=== PATIENT | male | born 1945 | race African-American/Black ===

== ENCOUNTER 2021-04-30 11:49 | Outpatient (CLI) | payer MEDICARE ==
[2021-04-30 13:02] LABS: Hemoglobin 13.7 g/dL (13.5-17.5); Mean Corpuscular HGB CONC 34.4 g/dL (32.0-36.0); Mean Corpuscular Hemoglobin 29.3 pg (27.0-33.0); Platelet Count 174 10x3/uL (150-450); RBC Distribution Width 16.3 % (11.5-14.5); Red Blood Cell (RBC) Count 4.68 10x6/uL (4.32-5.72); White Blood Cell (WBC) Count 7.5 10x3/uL (3.5-10.5)
[2021-04-30 13:10] LABS: Anion Gap 12 mmol/L (10-20); BUN (Urea Nitrogen) 22 mg/dL (8.4-25.7); Calc. Creatinine Clearance 0 mL/min (70-130); Calcium 9.6 mg/dL (7.8-10.44); Carbon Dioxide 24 mmol/L (23-31); Chloride 107 mmol/L (98-107); Glucose 112 mg/dL (83-110); Potassium 5.4 mmol/L (3.5-5.1); Sodium 138 mmol/L (136-145)
[2021-05-01 00:24] LABS: SARS-CoV-2 PCR by NAA Not Detected (NotDetected)
== END 2021-04-30 11:50 | disposition home or self-care (01) ==
LOC: LABBT 11:49
PROVIDERS: ATTEND Neurological Surgery
DX: Z01.818 Encounter for other preprocedural examination (principal); M48.062 Spinal stenosis, lumbar region with neurogenic claudication; Z20.822 Contact with and (suspected) exposure to COVID-19
CPT/HCPCS: 80048; 85027; 93005; U0003; U0005; 93010

== ENCOUNTER 2021-05-04 07:20 | Observation (INO) | payer MEDICARE ==
[2021-05-01 13:15] VITALS: BMI 25.1
[2021-05-04] MEDS ORDERED: SUGAMMADEX SODIUM 200 MG/2 ML VIAL ONE (09:36)
[2021-05-04] MEDS ORDERED: Phenylephrine 10 MG/ML VIAL ONE (09:36)
[2021-05-04] MEDS ORDERED: Fentanyl 100 MCG/2 ML VIAL ONE ×3 (10:05→12:27)
[2021-05-04] MEDS ORDERED: Glycopyrrolate 0.2 MG/ML 5 ML SYRINGE ONE (10:08)
[2021-05-04] MEDS ORDERED: Rocuronium Bromide 10 MG/ML (10ML VIAL) ONE (10:08)
[2021-05-04] MEDS ORDERED: Lidocaine 1% PF 5 ML VIAL ONE (10:08)
[2021-05-04] MEDS ORDERED: PROPOFOL 200 MG/20 ML VIAL ONE (10:08)
[2021-05-04] MEDS ORDERED: Ondansetron PF 4 MG/2 ML Vial ONE (10:08)
[2021-05-04] MEDS ORDERED: PHENYLEPHRINE-NS 100 MCG/ML 10 ML SYRINGE ONE (10:08)
[2021-05-04] MEDS ORDERED: Tamsulosin HCl 0.4 MG CAP ONE (11:31)
[2021-05-04] MEDS ORDERED: Ondansetron HCl/PF 4 MG/2 ML Vial IVP PRN ×2 (11:51→11:52)
[2021-05-04] MEDS ORDERED: Promethazine HCl 25 MG/ML VIAL IVPB PRN ×2 (11:51→11:52)
[2021-05-04] MEDS ORDERED: Meperidine HCl/PF 25 MG/ML VIAL SLOW IVP PRN (11:52)
[2021-05-04] MEDS ORDERED: Promethazine HCl 25 MG/ML VIAL IM PRN (11:52)
[2021-05-04] MEDS ORDERED: HYDROmorphone 2 MG/ML VIAL SLOW IVP PRN (11:52)
[2021-05-04] MEDS ORDERED: traMADol HCl 50 MG TAB PO PRN ×2 (17:39→17:40)
[2021-05-04] MEDS ORDERED: Acetaminophen/Codeine 30-300mg Tablet PO PRN (17:42)
[2021-05-04] MEDS ORDERED: Morphine 2 MG/ML VIAL SLOW IVP PRN (17:44)
[2021-05-04] MEDS ORDERED: Morphine 4 MG/ML VIAL IV PRN (17:45)
[2021-05-04] MEDS ORDERED: Sodium Chloride 0.9% 1,000 ML IV SCH (17:45)
[2021-05-04] MEDS ORDERED: tiZANidine HCl 4 MG TAB PO PRN (17:46)
[2021-05-04] MEDS ORDERED: diphenhydrAMINE 25 MG CAP PO PRN (17:47)
[2021-05-04] MEDS ORDERED: diphenhydrAMINE 50 MG/ML VIAL IVP PRN (17:49)
[2021-05-04] MEDS ORDERED: Promethazine 25 MG TAB PO PRN (17:51)
[2021-05-04] MEDS ORDERED: Promethazine HCl 12.5 MG SUPP PR PRN (17:52)
[2021-05-04] MEDS ORDERED: Mag-Al 1200 mg/1200 mg/30 ML UDCUP PO PRN (17:54)
[2021-05-04] MEDS ORDERED: Milk Of Magnesia 30 ML UDCUP PO PRN (17:55)
[2021-05-04] MEDS: ceFAZolin Sodium/D5W 2 GM in Premix Bag 1 BAG IVPB SCH (18:44)
[2021-05-04] MEDS: Lisinopril 5 MG TAB PO SCH (20:15)
[2021-05-04] MEDS: Metoprolol Tartrate 50 MG TAB PO SCH (20:15)
[2021-05-04] MEDS ORDERED: Atorvastatin Calcium 20 MG TAB PO SCH (21:00)
[2021-05-04] MEDS: Acetaminophen/Codeine 30-300mg Tablet PO PRN (22:16)
[2021-05-05] MEDS ORDERED: HumaLOG 300 UNITS/3 ML VIAL SC PRN ×2 (01:02)
[2021-05-05] MEDS ORDERED: Dextrose 5% in Water 1,000 ML IV PRN (01:02)
[2021-05-05] MEDS ORDERED: Dextrose 50% Abboject 50 ML SYRINGE SLOW IVP PRN (01:02)
[2021-05-05] MEDS: Acetaminophen/Codeine 30-300mg Tablet PO PRN (01:35)
[2021-05-05] MEDS: ceFAZolin Sodium/D5W 2 GM in Premix Bag 1 BAG IVPB SCH ×2 (02:33→10:03)
[2021-05-05] MEDS ORDERED: glipiZIDE 10 MG TAB PO SCH (07:30)
[2021-05-05] MEDS ORDERED: Spironolactone 25 MG TAB PO SCH (08:00)
[2021-05-05] MEDS ORDERED: Furosemide 80 MG TAB PO SCH (09:00)
[2021-05-05] MEDS ORDERED: Alogliptin 25 MG TAB PO SCH (09:00)
[2021-05-05] MEDS: Lisinopril 5 MG TAB PO SCH (09:59)
[2021-05-05] MEDS: Metoprolol Tartrate 50 MG TAB PO SCH (11:57)
[2021-05-05 12:23] VITALS: BP 132/69; TEMP 97.6
[2021-05-05] MEDS ORDERED: Tamsulosin HCl 0.4 MG CAP PO SCH (21:00)
[2021-05-06] MEDS ORDERED: Digoxin 0.125 MG TAB PO SCH (09:00)
== END 2021-05-05 17:10 | disposition home or self-care (01) ==
LOC: SDC 07:20 → SJJU 11:55
PROVIDERS: ADMIT Neurological Surgery; ATTEND Neurological Surgery
PROC: 01NB0ZZ Release Lumbar Nerve, Open Approach (ICD-10-PCS; principal; 2021-05-04)
DX: M48.062 Spinal stenosis, lumbar region with neurogenic claudication (principal); G89.29 Other chronic pain; M54.9 Dorsalgia, unspecified; I25.10 Atherosclerotic heart disease of native coronary artery without angina pectoris; I13.0 Hypertensive heart and chronic kidney disease with heart failure and stage 1 through stage 4 chronic kidney disease, or unspecified chronic kidney disease; E11.22 Type 2 diabetes mellitus with diabetic chronic kidney disease; N18.9 Chronic kidney disease, unspecified; I50.9 Heart failure, unspecified; E78.5 Hyperlipidemia, unspecified; E11.51 Type 2 diabetes mellitus with diabetic peripheral angiopathy without gangrene; J44.9 Chronic obstructive pulmonary disease, unspecified; Z87.891 Personal history of nicotine dependence; Z79.84 Long term (current) use of oral hypoglycemic drugs; Z79.899 Other long term (current) drug therapy; Z95.0 Presence of cardiac pacemaker; Z95.1 Presence of aortocoronary bypass graft; Z95.5 Presence of coronary angioplasty implant and graft; Z95.820 Peripheral vascular angioplasty status with implants and grafts
CPT/HCPCS: 36416; 76000; 96374; 96376; G0378; J0690; J2370; J2405; J2704; J3010; J3370; J7050; Q0169

== ENCOUNTER 2025-07-11 13:17 | Outpatient (CLI) | payer OTHER ==
[2025-07-11 15:00] LABS: #Basophils 0.03 10x3/uL (0.0-0.2); #Eosinophils 0.28 10x3/uL (0.0-0.7); #Monocytes 1.00 10x3/uL (0.11-0.59); #Neutrophils 2.62 10x3/uL (1.40-6.50); %Basophils 0.5 % (0.0-1.0); %Eosinophils 4.9 % (0.0-10.0); %Lymphocytes 31.2 % (21.0-51.0); %Monocytes 17.5 % (0.0-10.0); %Neutrophils 45.9 % (42.0-75.0); Hematocrit 35.5 % (42.0-52.0); Hemoglobin 11.5 g/dL (14.0-18.0); Mean Corpuscular Hemoglobin 24.7 pg (27.0-31.0); Mean Corpuscular Volume 76.2 fL (78.0-98.0); Platelet Count 212 10x3/uL (130-400); Red Blood Cell (RBC) Count 4.66 mill/uL (4.70-6.10); White Blood Cell (WBC) Count 5.71 10x3/uL (4.8-10.8)
[2025-07-11 15:13] LABS: Anion Gap 12 mmol/L (10-20); BUN (Urea Nitrogen) 15 mg/dL (8.4-25.7); Calc. Creatinine Clearance 0 mL/min (70-130); Calcium 9.4 mg/dL (7.8-10.44); Carbon Dioxide 23 mmol/L (23-31); Chloride 109 mmol/L (98-107); Glucose 94 mg/dL (83-110); Potassium 4.8 mmol/L (3.5-5.1); Sodium 139 mmol/L (136-145)
[2025-07-11 15:18] LABS: INR-International Normal Ratio 1.1; Prothrombin Time 14.4 sec (12.0-14.7)
[2025-07-11 15:19] LABS: PTT 36.8 sec (22.9-36.1)
== END 2025-07-11 13:18 | disposition home or self-care (01) ==
LOC: LABBT 13:17
PROVIDERS: ATTEND Neurological Surgery
DX: Z01.818 Encounter for other preprocedural examination (principal); M47.12 Other spondylosis with myelopathy, cervical region
CPT/HCPCS: 80048; 85025; 85610; 85730; 93005; 93010

== ENCOUNTER 2025-07-11 14:30 | Inpatient (IN) | payer OTHER ==
[2025-07-16] MEDS ORDERED: Bacitracin Zinc Ointment 30 gm TUBE ONE (05:44)
[2025-07-16] MEDS ORDERED: Thrombin 5000 UNITS/5 ML VIAL ONE (05:45)
[2025-07-16] MEDS ORDERED: fentaNYL PF 100 MCG/2 ML SYRINGE ONE ×3 (06:38→13:04)
[2025-07-16] MEDS ORDERED: Etomidate 40 MG (20 mL) VIAL ONE (06:57)
[2025-07-16] MEDS ORDERED: Fleet Saline Enema 133 ML BOT PR PRN (07:09)
[2025-07-16] MEDS ORDERED: Ondansetron PF 4 MG/2 ML Vial IVP PRN (07:09)
[2025-07-16] MEDS ORDERED: Bisacodyl 10 MG SUPP PR PRN (07:09)
[2025-07-16] MEDS ORDERED: diphenhydrAMINE 50 MG/ML VIAL IVP PRN (07:09)
[2025-07-16] MEDS ORDERED: Milk Of Magnesia 30 ML UDCUP PO PRN (07:09)
[2025-07-16] MEDS ORDERED: Mag-Al 1200 mg/1200 mg/30 ML UDCUP PO PRN (07:09)
[2025-07-16] MEDS ORDERED: Rocuronium Bromide 10 MG/ML (10ML VIAL) ONE (07:10)
[2025-07-16] MEDS ORDERED: PROPOFOL 200 MG/20 ML VIAL ONE (07:10)
[2025-07-16] MEDS ORDERED: Dextrose 50% Abboject 50 ML SYRINGE SLOW IVP PRN (07:14)
[2025-07-16] MEDS ORDERED: Glucagon 1 MG/ML KIT IM PRN (07:14)
[2025-07-16] MEDS ORDERED: Ondansetron PF 4 MG/2 ML Vial ONE (07:57)
[2025-07-16] MEDS ORDERED: SUGAMMADEX SODIUM 200 MG/2 ML VIAL ONE (10:43)
[2025-07-16 14:56] VITALS: BMI 24.7
[2025-07-16] MEDS: Furosemide 40 MG TAB PO SCH (15:29)
[2025-07-16] MEDS: Pantoprazole 40 MG DR.TAB PO SCH (15:29)
[2025-07-16] MEDS: Spironolactone 25 MG TAB PO SCH (15:29)
[2025-07-16 20:11] LABS: Anion Gap 17 mmol/L (10-20); BUN (Urea Nitrogen) 20 mg/dL (8.4-25.7); Calc. Creatinine Clearance 37 mL/min (70-130); Calcium 9.4 mg/dL (7.8-10.44); Carbon Dioxide 21 mmol/L (23-31); Chloride 106 mmol/L (98-107); Glucose 156 mg/dL (83-110); Magnesium 2.1 mg/dL (1.6-2.6); Potassium 5.6 mmol/L (3.5-5.1); Sodium 138 mmol/L (136-145)
[2025-07-17] MEDS: HYDROcodone/Acetaminophen 10/325 mg Tablet PO PRN (03:44)
[2025-07-17 05:01] LABS: #Basophils Less than 0.03 10x3/uL (0.0-0.2); #Eosinophils Less than 0.03 10x3/uL (0.0-0.7); #Monocytes 1.53 10x3/uL (0.11-0.59); #Neutrophils 6.75 10x3/uL (1.40-6.50); %Basophils 0.1 % (0.0-1.0); %Eosinophils 0.1 % (0.0-10.0); %Lymphocytes 9.7 % (21.0-51.0); %Monocytes 16.6 % (0.0-10.0); %Neutrophils 73.2 % (42.0-75.0); Hematocrit 31.0 % (42.0-52.0); Hemoglobin 10.3 g/dL (14.0-18.0); Mean Corpuscular Hemoglobin 25.2 pg (27.0-31.0); Mean Corpuscular Volume 75.8 fL (78.0-98.0); Platelet Count 156 10x3/uL (130-400); Red Blood Cell (RBC) Count 4.09 mill/uL (4.70-6.10); White Blood Cell (WBC) Count 9.22 10x3/uL (4.8-10.8)
[2025-07-17 05:37] LABS: Anion Gap 15 mmol/L (10-20); BUN (Urea Nitrogen) 22 mg/dL (8.4-25.7); Calc. Creatinine Clearance 42 mL/min (70-130); Calcium 9.0 mg/dL (7.8-10.44); Carbon Dioxide 22 mmol/L (23-31); Chloride 106 mmol/L (98-107); Glucose 115 mg/dL (83-110); Potassium 4.7 mmol/L (3.5-5.1); Sodium 138 mmol/L (136-145)
[2025-07-17] MEDS: Digoxin 0.125 MG TAB PO SCH (08:45)
[2025-07-17] MEDS ORDERED: Non-Formulary Item 1 EACH (Ferrous Sulfate [Ferrous Sulfate] 325 MG Tab) PO SCH (09:00)
[2025-07-17] MEDS ORDERED: Lisinopril 5 MG TAB PO SCH (09:00)
[2025-07-17] MEDS: Lisinopril 2.5 MG TAB PO SCH (12:04)
[2025-07-17] MEDS: HYDROcodone/Acetaminophen 7.5/325 mg Tablet PO PRN (21:30)
[2025-07-18 06:06] LABS: #Basophils Less than 0.03 10x3/uL (0.0-0.2); #Eosinophils 0.10 10x3/uL (0.0-0.7); #Monocytes 2.07 10x3/uL (0.11-0.59); #Neutrophils 10.15 10x3/uL (1.40-6.50); %Basophils 0.1 % (0.0-1.0); %Eosinophils 0.7 % (0.0-10.0); %Lymphocytes 7.8 % (21.0-51.0); %Monocytes 15.4 % (0.0-10.0); %Neutrophils 75.3 % (42.0-75.0); Hematocrit 29.2 % (42.0-52.0); Hemoglobin 9.9 g/dL (14.0-18.0); Mean Corpuscular Hemoglobin 24.9 pg (27.0-31.0); Mean Corpuscular Volume 73.6 fL (78.0-98.0); Platelet Count 155 10x3/uL (130-400); Red Blood Cell (RBC) Count 3.97 mill/uL (4.70-6.10); White Blood Cell (WBC) Count 13.48 10x3/uL (4.8-10.8)
[2025-07-18 06:10] LABS: Anion Gap 9 mmol/L (10-20); BUN (Urea Nitrogen) 23 mg/dL (8.4-25.7); Calc. Creatinine Clearance 44 mL/min (70-130); Calcium 8.8 mg/dL (7.8-10.44); Carbon Dioxide 24 mmol/L (23-31); Chloride 107 mmol/L (98-107); Glucose 84 mg/dL (83-110); Potassium 4.4 mmol/L (3.5-5.1); Sodium 136 mmol/L (136-145)
[2025-07-18] MEDS: Ferrous Sulfate 325 MG TAB PO SCH (08:40)
[2025-07-19 06:18] LABS: #Basophils Less than 0.03 10x3/uL (0.0-0.2); #Eosinophils 0.18 10x3/uL (0.0-0.7); #Monocytes 1.78 10x3/uL (0.11-0.59); #Neutrophils 8.19 10x3/uL (1.40-6.50); %Basophils 0.2 % (0.0-1.0); %Eosinophils 1.6 % (0.0-10.0); %Lymphocytes 7.7 % (21.0-51.0); %Monocytes 16.1 % (0.0-10.0); %Neutrophils 73.9 % (42.0-75.0); Hematocrit 28.0 % (42.0-52.0); Hemoglobin 9.5 g/dL (14.0-18.0); Mean Corpuscular Hemoglobin 25.0 pg (27.0-31.0); Mean Corpuscular Volume 73.7 fL (78.0-98.0); Platelet Count 156 10x3/uL (130-400); Red Blood Cell (RBC) Count 3.80 mill/uL (4.70-6.10); White Blood Cell (WBC) Count 11.08 10x3/uL (4.8-10.8)
[2025-07-19 06:22] LABS: Anion Gap 9 mmol/L (10-20); BUN (Urea Nitrogen) 20 mg/dL (8.4-25.7); Calc. Creatinine Clearance 53 mL/min (70-130); Calcium 8.8 mg/dL (7.8-10.44); Carbon Dioxide 25 mmol/L (23-31); Chloride 105 mmol/L (98-107); Glucose 124 mg/dL (83-110); Potassium 4.2 mmol/L (3.5-5.1); Sodium 135 mmol/L (136-145)
[2025-07-19] MEDS ORDERED: PNEUMOC 20-VAL CONJ-DIP CRM/PF 0.5 ML SYRINGE IM ONE (09:00)
[2025-07-19] MEDS: FLU (Fluad Triv) 25-26 (65UP)PF 45 MCG/0.5 ML Syringe IM ONE (21:03)
[2025-07-20] MEDS: glipiZIDE XL 2.5 mg ER.TAB PO SCH (08:26)
[2025-07-20] MEDS ORDERED: Iopamidol 370 76% 100 ML VIAL ONE (14:52)
[2025-07-23 10:50] VITALS: BMI 24.7
[2025-07-23 15:38] VITALS: BP 139/82; TEMP 98.5
== END 2025-07-23 17:44 | disposition home or self-care (01) | DRG 519 ==
LOC: SURG A 07-16 05:37 → SURG B 07-16 13:58
PROVIDERS: ADMIT Neurological Surgery; ATTEND Neurological Surgery
PROC: 00NW0ZZ Release Cervical Spinal Cord, Open Approach (ICD-10-PCS; principal; 2025-07-16)
PROC: 3E03329 Introduction of Other Anti-infective into Peripheral Vein, Percutaneous Approach (ICD-10-PCS; principal; 2025-07-16)
DX: M48.02 Spinal stenosis, cervical region (principal); G95.20 Unspecified cord compression; M47.12 Other spondylosis with myelopathy, cervical region; I13.0 Hypertensive heart and chronic kidney disease with heart failure and stage 1 through stage 4 chronic kidney disease, or unspecified chronic kidney disease; I50.22 Chronic systolic (congestive) heart failure; R65.10 Systemic inflammatory response syndrome (SIRS) of non-infectious origin without acute organ dysfunction; I48.91 Unspecified atrial fibrillation; N18.9 Chronic kidney disease, unspecified; I25.10 Atherosclerotic heart disease of native coronary artery without angina pectoris; E11.22 Type 2 diabetes mellitus with diabetic chronic kidney disease; K21.9 Gastro-esophageal reflux disease without esophagitis; E78.5 Hyperlipidemia, unspecified; I25.2 Old myocardial infarction; E11.51 Type 2 diabetes mellitus with diabetic peripheral angiopathy without gangrene; E66.9 Obesity, unspecified; Z95.0 Presence of cardiac pacemaker; Z95.5 Presence of coronary angioplasty implant and graft; Z98.890 Other specified postprocedural states; Z95.1 Presence of aortocoronary bypass graft; E11.65 Type 2 diabetes mellitus with hyperglycemia; D63.1 Anemia in chronic kidney disease; F17.210 Nicotine dependence, cigarettes, uncomplicated; K74.60 Unspecified cirrhosis of liver; Z79.01 Long term (current) use of anticoagulants; Z79.899 Other long term (current) drug therapy
CPT/HCPCS: 36415; 36416; 71275; 80048; 83735; 84100; 84484; 85025; 86141; 87040; J0169; J1100; J1815; J2405; J2704; J3373; J7030; Q9967